=== PATIENT | female | born 1950 | race Caucasian/White ===

== ENCOUNTER → 2019-03-20 | Outpatient (CLI) | payer MEDICARE, OTHER ==
--- NOTE | 2019-03-20 16:53 | Diagnostic Imaging Report ---
INDICATION: Left knee pain. COMPARISON: None available. TECHNIQUE: Three radiographs of the left knee dated March 20, 2019. FINDINGS: No acute fracture or dislocation. No destructive osseous process. Severe medial joint space narrowing. Minimal lateral joint space narrowing. Mild osteophytosis of the patellofemoral joint. Several rounded calcific densities are noted along the anterior aspect of the knee joint line, largest measuring 1.8 cm in maximal dimension. Small knee joint effusion is present. Mild scattered vascular calcifications. IMPRESSION: No acute fracture with moderate degenerative changes, particularly within the medial compartment with large loose bodies noted anteriorly and a small knee joint effusion. Dictated by: Dictated on workstation # [id number]
== END ==
LOC: RAD FS 13:16
PROVIDERS: ATTEND Nurse Practitioner
DX: M17.12 Unilateral primary osteoarthritis, left knee (principal); M23.42 Loose body in knee, left knee; M25.462 Effusion, left knee
CPT/HCPCS: 73562